=== PATIENT | female | born 1990 | race Caucasian/White ===

== ENCOUNTER 2021-03-13 17:29 | Outpatient (CLI) | payer OTHER, SELFPAY ==
[2021-03-13 17:55] LABS: Basophils Percent Auto 0.3 % (0.2-1.2); Eosinophils Absolute Auto 0.1 K/mm3 (0-0.3); Eosinophils Percent Auto 0.7 % (0-4.4); Hematocrit 34.9 % (37.0-47.0); Hemoglobin 11.6 g/dL (12.0-15.0); Immature Granulocyte Absolute 0.11 K/mm3 (0.00-0.031); Immature Granulocyte Percent A 1.2 % (0-0.5); Lymphocytes Absolute Auto 1.71 K/mm3 (0.9-3.2); Lymphocytes Percent Auto 18.1 % (18.3-44.2); Mean Corpuscular HGB Conc 33.2 g/dl (32-36); Mean Corpuscular Hemoglobin 28.9 pg (26-34); Mean Platelet Volume 9.3 fl (7.4-10.4); Monocytes Absolute Auto 0.8 K/mm3 (0.1-0.6); Monocytes Percent Auto 8.9 % (2.6-8.5); Neutrophils Absolute Auto 6.7 K/mm3 (1.3-6.7); Neutrophils Percent Auto 70.8 % (45.5-73.1); Platelet Count Result 260 k/mm3 (150-375); Red Blood Count 4.01 M/mm3 (4.2-5.4); Red Cell Distribution Width 18.9 % (11.5-14.5); White Blood Count 9.5 K/mm3 (4.5-10.0)
[2021-03-13 18:00] VITALS: BP 135/84; PULSE 90
[2021-03-13 18:07] LABS: Alanine Aminotransferase 14 U/L (4-35); Albumin Level 3.5 g/dL (3.5-5.1); Alkaline Phosphatase 148 U/L (38-126); Anion Gap 6 mmol/L (8-16); Aspartate Amino Transferase 21 U/L (14-36); Bilirubin,Total 0.2 mg/dL (0.2-1.3); Blood Urea Nitrogen 7 mg/dL (7-17); Calcium 9.6 mg/dL (8.4-10.2); Carbon Dioxide 23 mmol/L (22-30); Chloride 105 mmol/L (98-107); Estimated Glomerular Filt Rate > 60; Glucose 105 mg/dL (65-110); Potassium 3.6 mmol/L (3.4-5.0); Sodium 134 mmol/L (137-145); Uric Acid 4.5 mg/dL (2.5-7.5)
[2021-03-13 18:15] VITALS: BP 130/84; PULSE 92
[2021-03-13 18:44] LABS: Add Urine Microscopic? YES; Appearance Urine Cloudy (Clear); Bacteria Urine 4+ /hpf; Bilirubin Urine Negative (Negative); Blood Urine 1+ (Negative); Budding Yeast Urine Present /hpf; Color Urine Yellow (Yellow); Glucose Urine UA Negative (Negative); Ketones Urine Negative (Negative); Leukocyte Esterase Ur 3+ LEU/UL (NEGATIVE); Mucus Urine Rare /lpf; Nitrate Urine Negative (Negative); Protein Urine Negative (Negative); Specific Grav Ur 1.006 (1.001-1.035); Squamous Epithelial Cell Urine Many /hpf (Few); Urobilinogen Urine Negative mg/dL (<2.0); WBC Urine 31-50 /hpf (0-3)
[2021-03-13 19:01] LABS: Creatinine Urine 44.5 mg/dL; Total Protein Urine Random 20 mg/dL; Ur Ttl Prot Creatinine Ratio 0.45 mg/mg (0-0.20)
== END 2021-03-13 18:30 | disposition home or self-care (01) ==
LOC: ANHOBOP 17:34 → ANHLDR 17:34
PROVIDERS: Advanced Practice Midwife; Visit Provider Obstetrics & Gynecology
DX: O13.9 Gestational [pregnancy-induced] hypertension without significant proteinuria, unspecified trimester (principal); Z3A.00 Weeks of gestation of pregnancy not specified
CPT/HCPCS: 36415; 59025; 80053; 81001; 82570; 84156; 84550; 85025; 87086; 99199

== ENCOUNTER 2021-03-15 18:43 | Outpatient (NON) | payer OTHER, SELFPAY ==
[2021-03-15 18:54] VITALS: BMI 33.2
[2021-03-15 19:13] LABS: Collection Time Urine 24 HOURS
[2021-03-15 19:14] LABS: Patient Weight 187 Lbs; Total Volume 24 Hour Urine 2500 ml
[2021-03-15 19:25] LABS: Estimated CRCL calculation 143 ml/min; Estimated Glomerular Filt Rate > 60
[2021-03-15 19:26] LABS: Creatinine Clearance Urine 173.2 ml/min (75-125); Total Protein Urine 24 Hr 225 mg/24hr (28-141); Total Protein Urine Random 9 mg/dL
[2021-03-15 19:31] LABS: Specific Gravity Ur 1.015
== END 2021-03-15 18:44 | disposition home or self-care (01) ==
LOC: ANHOBOP 18:47
PROVIDERS: Visit Provider Obstetrics & Gynecology
DX: O13.9 Gestational [pregnancy-induced] hypertension without significant proteinuria, unspecified trimester (principal); Z3A.00 Weeks of gestation of pregnancy not specified
CPT/HCPCS: 36415; 81050; 82565; 82575; 84156

== ENCOUNTER 2021-03-17 16:02 | Inpatient (IN) | payer OTHER, SELFPAY ==
[2021-03-17] VITALS (14 sets, daily range): BP systolic 132–145; BP diastolic 75–99; PULSE 93–116; TEMP 36.5–36.7; BMI 33.2
--- OUTSIDE RECORDS SUMMARY | 2021-03-17 16:09 | XMS_ITS ---
:1990 Author Care Team Providers Name Role Phone Amanda Marshall Con Primary Care Provider Unavailable Allergies Code Code System Name Reaction Severity Status Onset Cat Dander ? ? Active ? [id number] RxNorm Latex ? ? Active ? NKDA ? Medications Name Status Start Date Stop Date ? ? 24 Hour Allergy Relief Active ? Not avail able amoxicillin 500 mg tablet Completed ? 2020 TAKE 1 TABLET BY MOUTH THREE TIMES DAILY FOR 7 DAYS cephalexin 500 mg capsule Completed ? 2020 TAKE 1 CAPSULE BY MOUTH THREE TIMES DAILY FOR 7 DAYS ID NOW COVID-19 Test Kit Active ? Not rosalio ilable DIRECTED ondansetron 8 mg disintegrating tablet Completed ? 11/22/2020 DISSOLVE 1 TABLET ON THE TONGUE TWICE DAILY Active ? Not available Problems Name Status Onset Date Source ? Active 09/27/2020 ? Procedures Date Name Performed by ? 09/27/2020 US, Obstetric, Nuchal Translucency Curtis watson [address] [place] [address] ([address]) 11/22/2020 US, Obstetric, 2Nd or 3Rd Trimester Marianne grey [address] [place] [address] (Work Place)
--- OUTSIDE RECORDS SUMMARY | 2021-03-17 16:09 | XMS_ITS | Encounter Summary ---
:1990 Author Reason for Visit OB problem; blood pressure OB problem [id number] EDC 04/06/2021 LMP patient is here for follow up on blood pressure. Assessment and Plan 1. Routine care Discussion Note: None recorded.Patient educational handouts: No information available. Plan of Care Reminders Provider Appointments Blood Amanda bear, Pressure Check 03/27/2021 CNM 5:15PM Lab None ? ? recorded. Referral None ? ? recorded. Procedures None ? ? recorded. Surgeries None ? ? recorded. Imaging None ? ? recorded. Medications Name Start Date ? ? 24 Hour Allergy Relief ? ID NOW COVID-19 Test Kit ? DIRECTED ? Medications Administered None recorded. Vitals Height Weight BMI Blood Pressure 5 ft 6 in 187 lbs 30.2 kg/m2 (1) 146/87 mm[H g] (2) 150/100 mm[H g] Results Lab Results None recorded. Allergies Code Code System Name Reaction Severity Onset Cat Dander ? ? ? [id number] RxNorm Latex ? ? ? NKDA ? ? ? Problems Name Status Onset Date Source ?
--- OUTSIDE RECORDS SUMMARY | 2021-03-17 16:09 | XMS_ITS | Encounter Summary ---
:1990 Author Reason for Visit OB visit OB [id number] EDC 04/06/2021 LMP 06/30/20 Assessment and Plan Assessment Note Patient is __28_weeks . Dis cussed plan. 1. Routine care Discussion Note: None recorded.Patient [...] BMI Blood Pressure 5 ft 6 in 170 lbs 27.4 kg/m2 135/86 mm[Hg] Results Lab Results None recorded. Allergies Code Code System Name Reaction Severity Onset Cat Dander ? ? ? [id number] RxNorm Latex ? ? ? NKDA ? ? ? Problems Name Status Onset Date Source ?
--- OUTSIDE RECORDS SUMMARY | 2021-03-17 16:09 | XMS_ITS | Encounter Summary ---
:1990 Author Reason for Visit OB visit Assessment and Plan Assessment Note Patient is ___weeks . Discu ssed plan. 1. Routine care Discussion Note: None [...] BMI Blood Pressure 5 ft 6 in 163 lbs 26.3 kg/m2 126/84 mm[Hg] Results Lab Results None recorded. Allergies Code Code System Name Reaction Severity Onset Cat Dander ? ? ? [id number] RxNorm Latex ? ? ? NKDA ? ? ? Problems Name Status Onset Date Source ?
--- OUTSIDE RECORDS SUMMARY | 2021-03-17 16:09 | XMS_ITS | Encounter Summary ---
:1990 Author Reason for Visit OB visit OB [id number] EDC 04/06/2021 LMP 06/30/2020 Assessment and Plan Assessment Note Patient is _34__weeks . Dis cussed plan. 1. Routine care [...] BMI Blood Pressure 5 ft 6 in 183 lbs 29.5 kg/m2 138/84 mm[Hg] Results Lab Results None recorded. Allergies Code Code System Name Reaction Severity Onset Cat Dander ? ? ? [id number] RxNorm Latex ? ? ? NKDA ? ? ? Problems Name Status Onset Date Source ?
--- OUTSIDE RECORDS SUMMARY | 2021-03-17 16:09 | XMS_ITS | Encounter Summary ---
:1990 Author Reason for Visit OB visit OB [id number] EDC 04/06/2021 LMP 06/30/2020 Assessment and Plan Assessment Note Patient is _30__weeks . Dis cussed plan. 1. Routine care [...] BMI Blood Pressure 5 ft 6 in 173 lbs 27.9 kg/m2 144/76 mm[Hg] Results Lab Results None recorded. Allergies Code Code System Name Reaction Severity Onset Cat Dander ? ? ? [id number] RxNorm Latex ? ? ? NKDA ? ? ? Problems Name Status Onset Date Source ?
--- OUTSIDE RECORDS SUMMARY | 2021-03-17 16:09 | XMS_ITS | Encounter Summary ---
:1990 Author Reason for Visit None recorded. Assessment and Plan 1. Uterine size for dates discre pancy ? US, obstetric, follow-up Discussion Note: None recorded.Patient educational handouts: No information available. Plan of Care Reminders Provider Appointments Blood Amanda bear, Pressure Check 03/27/2021 CNM 5:15PM Lab None ? ? recorded. Referral None ? ? recorded. Procedures None ? ? recorded. Surgeries None ? ? recorded. Imaging , [place] Obstetric, Follow-up 03/01/2021 Medications Name Start Date ? ? 24 Hour Allergy Relief ? ID NOW COVID-19 Test Kit ? DIRECTED ? Medications Administered None recorded. Vitals None recorded. Results Lab Results None recorded. Allergies Code Code System Name Reaction Severity Onset Cat Dander ? ? ? [id number] RxNorm Latex ? ? ? NKDA ? ? ? Problems Name Status Onset Date Source ? Active 09/27/2020 ? Procedures Date Name Performed by
--- OUTSIDE RECORDS SUMMARY | 2021-03-17 16:09 | XMS_ITS | Encounter Summary ---
:1990 Author Reason for Visit OB visit OB [id number] EDC 04/06/2021 LMP 06/30/2020 Assessment and Plan Assessment Note Patient is 32___weeks . Dis cussed plan. 1. Routine care [...] BMI Blood Pressure 5 ft 6 in 178 lbs 28.7 kg/m2 137/86 mm[Hg] Results Lab Results None recorded. Allergies Code Code System Name Reaction Severity Onset Cat Dander ? ? ? [id number] RxNorm Latex ? ? ? NKDA ? ? ? Problems Name Status Onset Date Source ?
--- OUTSIDE RECORDS SUMMARY | 2021-03-17 16:09 | XMS_ITS | Encounter Summary ---
:1990 Author Reason for Visit OB visit OB [id number] EDC 04/06/2021 LMP 06/30/2020 Assessment and Plan Assessment Note Patient is _36__weeks . Dis cussed plan. 1. Routine care [...] 6 in 187 lbs 30.2 kg/m2 (1) 149/94 mm[H g] (2) 155/100 mm[H g] Results Lab Results None recorded. Allergies Code Code System Name Reaction Severity Onset Cat Dander ? ? ? [id number] RxNorm Latex ? ? ? NKDA ? ? ?
[2021-03-17] MEDS: DINOPROSTONE 10 MG VAG INSERT VAGINAL (16:39)
[2021-03-17 16:46] LABS: Basophils Percent Auto 0.3 % (0.2-1.2); Eosinophils Absolute Auto 0.1 K/mm3 (0-0.3); Eosinophils Percent Auto 0.5 % (0-4.4); Hematocrit 34.9 % (37.0-47.0); Hemoglobin 11.5 g/dL (12.0-15.0); Immature Granulocyte Absolute 0.12 K/mm3 (0.00-0.031); Immature Granulocyte Percent A 1.3 % (0-0.5); Lymphocytes Absolute Auto 1.53 K/mm3 (0.9-3.2); Lymphocytes Percent Auto 16.5 % (18.3-44.2); Mean Corpuscular Hemoglobin 29.1 pg (26-34); Mean Corpuscular Volume 88.4 fl (80-100); Mean Platelet Volume 9.7 fl (7.4-10.4); Monocytes Absolute Auto 0.8 K/mm3 (0.1-0.6); Monocytes Percent Auto 8.3 % (2.6-8.5); Neutrophils Absolute Auto 6.8 K/mm3 (1.3-6.7); Neutrophils Percent Auto 73.1 % (45.5-73.1); Platelet Count Result 247 k/mm3 (150-375); Red Blood Count 3.95 M/mm3 (4.2-5.4); Red Cell Distribution Width 18.5 % (11.5-14.5); White Blood Count 9.3 K/mm3 (4.5-10.0)
[2021-03-17 16:56] LABS: Alanine Aminotransferase 15 U/L (4-35); Albumin Level 3.6 g/dL (3.5-5.1); Alkaline Phosphatase 148 U/L (38-126); Anion Gap 5 mmol/L (8-16); Aspartate Amino Transferase 23 U/L (14-36); Bilirubin,Total 0.2 mg/dL (0.2-1.3); Blood Urea Nitrogen 7 mg/dL (7-17); Calcium 9.2 mg/dL (8.4-10.2); Carbon Dioxide 23 mmol/L (22-30); Chloride 104 mmol/L (98-107); Estimated Glomerular Filt Rate > 60; Glucose 97 mg/dL (65-110); Potassium 3.7 mmol/L (3.4-5.0); Sodium 132 mmol/L (137-145); Uric Acid 4.8 mg/dL (2.5-7.5)
[2021-03-17] MEDS: LACTATED RINGERS 1,000 ML 125 ML IV CONT (21:39)
[2021-03-17] MEDS: fentaNYL CITRATE INJ (*CRX) 100 MCG/2 ML VIAL 50 MCG IV PUSH (22:00)
[2021-03-18] VITALS (117 sets, daily range): BP systolic 113–150; BP diastolic 66–100; PULSE 40–154; RESP 16–20; TEMP 36.3–38.2; O2SAT 82–100
--- NOTE | 2021-03-18 03:17 | LDADM ---
This patient, Cassandra Koenig, was admitted to Labor/Delivery/Recovery 108 on 03/17/21 at 16:02. Plans for labor, pain management and were discussed with patient. Patient/family oriented to hospital policies and general routines including ID bracelet, bed and alarms, visiting hours, pain management, procedures, bathroom and other care routines, personal items, smoking policy, room service/diet and guest tray routines, infant security routines, and visiting hours. Patient/Family are encouraged to report perceived risks to care and to ask questions if they do not understand what they are told or what they should do. See OBIX for further documentation.
[2021-03-18] MEDS: OXYTOCIN 30 UNITS/NS 500 ML 30 UNITS/500 ML BAG 6 UNITS IV CONT (05:47)
[2021-03-18] MEDS: fentaNYL CITRATE INJ (*CRX) 100 MCG/2 ML VIAL IV PUSH ×3 (05:47→09:41)
[2021-03-18 06:11] LABS: Rapid Plasma Reagin Non-Reactive (NonReactive)
--- NOTE | 2021-03-18 07:45 | WPDANESEPP ---
Anes - Eval Pre Procedure Procedure: labor epidural Date/Time: 03/18/21 07:45 Surgeon: sera Preop Diagnosis: pain during labor Pre Op Diagnosis: IOL Patient Data Age: 30 Gender: F Height: 1.6 m Weight: 85 kg Last Vital Signs Temp 36.3 C L 03/18/21 05:55 Pulse 92 03/18/21 07:30 Resp 18 03/18/21 05:55 BP 138/83 03/18/21 07:30 Allergies Allergy/AdvReac Type Severity Reaction Status Date / Time latex Allergy Rash Verified 03/08/21 12:30 Home Medications Medication Instructions Recorded Confirmed Type ferrous sulfate 140 mg PO BID 03/08/21 03/17/21 History prenat.vits,alexandrea,sol-ypva-aosfv 1 tablet PO DAILY 03/08/21 03/17/21 History [ #2] Laboratory Tests 03/17/21 03/17/21 03/17/21 16:32 16:33 16:33 WBC 9.3 K/mm3 K/mm3 (4.5-10.0) RBC 3.95 M/mm3 L M/mm3 (4.2-5.4) Hgb 11.5 g/dL L g/dL (12.0-15.0) Hct 34.9 % L % (37.0-47.0) MCV 88.4 fl fl (80-100) MCH 29.1 pg pg (26-34) MCHC 33.0 g/dl g/dl (32-36) RDW 18.5 % H % (11.5-14.5) Plt Count 247 k/mm3 k/mm3 (150-375) MPV 9.7 fl fl (7.4-10.4) Immature Gran % (Auto) 1.3 % H % (0-0.5) Neut % (Auto) 73.1 % % (45.5-73.1) Lymph % (Auto) 16.5 % L % (18.3-44.2) [place] % (Auto) 8.3 % % (2.6-8.5) Eos % (Auto) 0.5 % % (0-4.4) Baso % (Auto) 0.3 % % (0.2-1.2) Lymph # (Auto) 1.53 K/mm3 K/mm3 (0.9-3.2) [place] # (Auto) 0.8 K/mm3 H K/mm3 (0.1-0.6) Eos # (Auto) 0.1 K/mm3 K/mm3 (0-0.3) Baso # (Auto) 0.0 K/mm3 K/mm3 (0.0-0.1) Abs Immat Gran (auto) 0.12 K/mm3 H K/mm3 (0.00-0.031) Absolute Neuts (auto) 6.8 K/mm3 H K/mm3 (1.3-6.7) Absolute Nucleated RBC 0.0 K/mm3 K/mm3 (0.0-0.012) Nucleated RBC % 0.0 % % (0.0-0.2) Sodium Potassium Chloride Carbon Dioxide Anion Gap BUN Creatinine Estim Creat Clear Calc Estimated GFR Glucose Uric Acid Cancelled Calcium Total Bilirubin AST ALT Alkaline Phosphatase Total Protein Albumin RPR Non-reactive (NonReactive) Blood Type Antibody Screen 03/17/21 03/17/21 16:33 16:33 WBC RBC Hgb Hct MCV MCH MCHC RDW Plt Count MPV Immature Gran % (Auto) Neut % (Auto) Lymph % (Auto) [place] % (Auto) Eos % (Auto) Baso % (Auto) Lymph # (Auto) [place] # (Auto) Eos # (Auto) Baso # (Auto) Abs Immat Gran (auto) Absolute Neuts (auto) Absolute Nucleated RBC Nucleated RBC % Sodium 132 mmol/L L mmol/L (137-145) Potassium 3.7 mmol/L mmol/L (3.4-5.0) Chloride 104 mmol/L mmol/L (98-107) Carbon Dioxide 23 mmol/L mmol/L (22-30) Anion Gap 5 mmol/L L mmol/L (8-16) BUN 7 mg/dL mg/dL (7-17) Creatinine 0.50 mg/dL L mg/dL (0.7-1.0) Estim Creat Clear Calc Not Reportable Estimated GFR > 60 (59 - ) Glucose 97 mg/dL mg/dL (65-110) Uric Acid 4.8 mg/dL mg/dL (2.5-7.5) Calcium 9.2 mg/dL mg/dL (8.4-10.2) Total Bilirubin 0.2 mg/dL mg/dL (0.2-1.3) AST 23 U/L U/L (14-36) ALT 15 U/L U/L (4-35) Alkaline Phosphatase 148 U/L H U/L (38-126) Total Protein 6.0 g/dL L g/dL (6.3-8.2) Albumin 3.6 g/dL g/dL (3.5-5.1) RPR Blood Type O Positive Antibody Screen Negative Patient hx anesthesia problems: none Family hx anesthesia problems: none
--- NOTE | 2021-03-18 09:08 | WPDOBADMIT ---
Obstetrics - Admit Note Admission Note: record reviewed. No pertinent additions to the history and/or any subsequent changes in the physical findings that are not consistent with the expected course of the were found. MIL at 37 week for GHTN, denies jc, visual changes, epigastric pain, SVE 1-2/70/-2 forebag ruptured with minimal clear odorless fluid Additions to the history and/or subsequent changes in the physical findings follow. None.
[2021-03-18] MEDS: LACTATED RINGERS 1,000 ML 125 ML IV CONT (09:41)
--- NOTE | 2021-03-18 15:11 | PM.OBPRVD ---
OB - Delivery Note Procedure Delivery date: 03/18/21 Procedure: vaginla delivery events: Induced HTN Intrapartal events: None Induction method: AROM, per pitocin protocol and per cervidil protocol Delivery monitor: external FHT and external uterine Route of delivery: Episiotomy description: None Laceration Description: Perineal - 2nd Degree (rectal exam wnl) Delivery repair: vicryl Specimen: Yes Quantitative Blood Loss (ml): 180 Anesthesia type: Epidural Disposition: floor Baby Date of : 03/18/21 Time of : 14:51 Weeks of gestation at delivery: 37 Infant gender: Female Weight (pounds): 8 Weight (ounces): 8 presentation: vertex position: Left Occiput Anterior Placenta delivery description: Spontaneous cord vessel description: 3 Vessels, Nuchal Cord (x2), Loose, Reduced, Clamped/Cut and Delayed Cord Clamping score one minute: 7 score five minutes: 7 Narrative: mother and baby skin to skin in stable condition
[2021-03-18] MEDS: OXYTOCIN 30 UNITS/NS 500 ML 30 UNITS/500 ML BAG 125 UNITS IV CONT (15:25)
[2021-03-18] MEDS: IBUPROFEN 600 MG TABLET PO (16:02)
[2021-03-18] MEDS: BENZOCAINE 20% AER SPR (*SP) 56 GM CAN 1 SPRAY TOPICAL (18:50)
[2021-03-18] MEDS: WITCH HAZEL 40 PADS 1 PAD TOPICAL (18:50)
--- NOTE | 2021-03-18 18:59 | OBPPTRN ---
Patient transferred to post room #278 via wheelchair. Support person present. Oriented to unit, room, information board, rooming in, admission packet and security measures. Patient verbalizes understanding.
[2021-03-19] MEDS: IBUPROFEN 600 MG TABLET PO ×4 (00:08→20:49)
[2021-03-19 03:00] VITALS: BP 135/83; PULSE 99; RESP 16; TEMP 36.9; O2SAT 98
[2021-03-19 05:20] LABS: Hematocrit 32.8 % (37.0-47.0); Hemoglobin 10.6 g/dL (12.0-15.0)
[2021-03-19 07:20] VITALS: BP 143/83; PULSE 100; RESP 16; TEMP 36.4; O2SAT 98
[2021-03-19] MEDS: MULTIVIT/MIN/PREN/FOL AC/IRON TABLET 1 TAB PO (07:34)
[2021-03-19] MEDS: DOCUSATE SODIUM 100 MG CAPSULE PO ×2 (07:34→17:19)
--- NOTE | 2021-03-19 07:51 | PM.OBPNVD ---
OB - PN: Subj Subjective Date/time seen: 03/19/21 07:51 Patient comments: no complaints baby status: doing well OB - PN: Obj Data Labs CBC & Chem 7: 03/19/21 03:45 03/17/21 16:33 Labs: Laboratory Results - last 24 hr 03/19/21 03:45 Hgb 10.6 L Hct 32.8 L OB - PN A/P Plan day: 1 Plan: routine care Time Spent With Patient Time: Total time spent is greater than 50% in coordination of care (as documented) at patient's floor/unit and/or counseling patient: Time with patient: less than 15 minutes Review of Systems Review of Systems: All systems reviewed & are unremarkable except as noted in HPI and below Exam Narrative: Fundus firm and vaginal flow controlled. No lower ext redness, warmth, or edema. Negative homans. Denies h/a, v/d or e/p. Reflexes normal. Const: General: comfortable Chest: Breast/axilla inspection: normal inspection of the breasts Resp: Effort & Inspection: normal respiratory effort Cardio: Rate: regular rate GI: GI Palp: Yes Soft to palpation Psych: Appearance: grossly normal Affect: normal affect Attitude: cooperative Thought content: Yes Normal thought content present Judgement: Good judgement present (Psych)
--- NOTE | 2021-03-19 09:30 | PC.NURSE ---
Mother called out for assist with feeding, reporting is sleepy at times. Mother has a Latch Assist at bedside to assist with drawing out nipple. Demonstrated how to roll out nipple before latch, advising mother to use what she is most comfortable with. is able to freely thrust tongue to gum ridge small amount of frenulum noted, both lips easily flange. Skin is intact on both nipples, no redness and bruising noted. Discussed establishing in the late may be more difficult due to their immaturity, infant may be less alert, have less stamina, and have greater difficulty with latch, suck, and swallow. Infant?s feeding may impact mother?s milk supply, pumping may need to be initiated until milk supply is well established if is unable to maintain effective breastfeed. Reviewed feeding cues, frequencies, duration of feedings, feeding elimination flow sheet, and signs of adequate intake. Demonstrated stimulation techniques to wake for feeding. Assisted with to breast. Reviewed positioning/alignment in cross cradle, holding breast in ?U? hold and guided asymmetrical latch on. Reviewed rational for each. able to latch correctly within a few attempts. nursed eagerly with steady draws and occasional swallowing noted, some pausing noted. Reviewed signs of a correct latch, effective nursing and suck swallow ratio. Suggested mother stimulate while feeding to increase stimulation for milk supply, for increased intake and to assist with maintaining deep latch. needed constant stimulation to keep awake and nursing effectively. Infant would slip to shallow latch causing tenderness. Demonstrated how to adjust latch more deeply while feeding as needed. Mother reports she can feel the difference in latch with less tenderness. Nipple care reviewed of lanolin after feedings, warm compresses as needed. Instructed mother to call out for RN assistance if she is unable to latch for feeding or she has discomfort with nursing. Instructed feeding should be initiated three hours from start of last feeding or if feeding cues are noted before. Mother voiced understanding of information shared.
--- NOTE | 2021-03-19 11:12 | WPDANLDPN2 ---
Anes-Prog Note L&D Date/Time: 03/19/21 11:12 Comfortable throughout: labor and delivery Neuraxial method: epidural Epidural/Spinal procedure site: clean & non-tender Neuro status: Neuro function grossly intact. Cardiovascular status: normal Respiratory status: normal Airway patency: baseline Mental status: baseline Post-Op hydration status: normal Vital Signs: Last Vital Signs Temp 36.4 C 03/19/21 07:20 Pulse 100 03/19/21 07:20 Resp 16 03/19/21 07:20 BP 143/83 H 03/19/21 07:20 Pulse Ox 98 03/19/21 07:20 Pain score (VAS): 0 I/O: Intake & Output 03/18/21 03/19/21 03/19/21 23:59 07:59 15:59 Intake Total 500 300 250 Output Total 1005 400 500 Balance -505 -100 -250 Post-procedural complaints: none Patient feedback: Patient satisfied with anesthetic care.
[2021-03-19 11:50] VITALS: BP 137/84; PULSE 117; RESP 16; TEMP 36.9; O2SAT 97
[2021-03-19] MEDS: POLYSACCHARIDE IRON COMPLEX 150 MG CAPSULE PO (17:19)
[2021-03-19 19:00] VITALS: BP 140/78; PULSE 103; RESP 16; TEMP 35.9; O2SAT 99
[2021-03-19 23:15] VITALS: BP 140/90; PULSE 99
[2021-03-20] VITALS (7 sets, daily range): BP systolic 127–154; BP diastolic 82–93; PULSE 91–108; RESP 12–18; TEMP 36.4–37.1; O2SAT 97–98
[2021-03-20] MEDS: ACETAMINOPHEN 325 MG TABLET 650 MG PO ×2 (01:25→14:25)
--- NOTE | 2021-03-20 07:22 | PM.OBPNVD ---
OB - PN: Subj Subjective Date/time seen: 03/20/21 07:22 Patient comments: no complaints baby status: doing well [place] feeding status: breast and bottle feeding OB - PN: Obj Data Labs CBC & Chem 7: 03/19/21 03:45 03/17/21 16:33 OB - PN A/P Plan day: 2 Plan: routine care Time Spent With Patient Time: Total time spent is greater than 50% in coordination of care (as documented) at patient's floor/unit and/or counseling patient: Review of Systems Review of Systems: All systems reviewed & are unremarkable except as noted in HPI and below Exam Const: General: cooperative, healthy appearing, comfortable and no acute distress
[2021-03-20] MEDS: LABETALOL HCL 100 MG TABLET PO ×2 (08:55→20:22)
[2021-03-20] MEDS: MULTIVIT/MIN/PREN/FOL AC/IRON TABLET 1 TAB PO (08:55)
--- NOTE | 2021-03-20 10:10 | PC.NURSE ---
Mother called out for assist with feeding, reporting was sleepy and was put under bili lights during the night. is now supplemented after each . Reviewed establishing in the late may be more difficult due to their immaturity, may be less alert, have less stamina, and have greater difficulty with latch, suck, and swallow. ?s feeding may impact mother?s milk supply, pumping may need to be initiated until milk supply is well established and is able to effectively breastfeed without supplementation. Suggested to initiate pumping after this feeding. Reviewed feeding cues, frequencies, duration of feedings, feeding elimination flow sheet, and signs of adequate intake. Demonstrated stimulation techniques to wake for feeding. Assisted with to breast. Reviewed positioning/alignment in cross cradle, holding breast in ?U? hold and guided asymmetrical latch on. Reviewed rational for each. Infant able to latch correctly within a few attempts. Infant nursed eagerly with steady draws and occasional swallowing noted, some pausing noted. Reviewed signs of a correct latch, effective nursing and suck swallow ratio. Suggested mother stimulate while feeding to increase stimulation for milk supply, for increased intake and to assist with maintaining deep latch. Infant is more awake and eagerly feeding with minimal stimulation this feeding. would slip to shallow latch causing tenderness. Demonstrated how to adjust latch more deeply while feeding as needed. Mother reports she can feel the difference in latch with no tenderness. Nipple care reviewed of lanolin after feedings, warm compresses as needed. Discussed the difference of effective vs ineffective feeding. Reviewed infant is latching with good burst of suckling, she is feeding consistently with adequate milk transfer at this time and continues to need supplement after due to the jaundice. . Feeding options discussed, Feeding Plan is for mother to put to breast each feeding for up to 15 minutes, then pace feed supplement 20-30 mls and pump for 10-15 minutes. Parents are comfortable with supplementation and pumping. Discussed increasing supplementation as infant requires to satisfactions. Reviewed paced feeding and suggested to stop when is satisfied, as long as infant is having required output. With increased supplementation infant may not want to feed for 4 hours. Mother will continue to pump on infant feeding schedule and will increase session to 20 minutes if pumping every 4 hours. Instructed mother to call out for RN assistance if she is unable to latch for feeding or she has discomfort with nursing.
--- NOTE | 2021-03-20 11:00 | PC.NURSE ---
Breast pump provided due to supplemented due to jaundice. Instructions given on breast pump care and usage, pumping schedule, nipple care, and collection and storage of breast milk. Encouraged [id number], breast massage and manual expression to stimulate supply. Assessed patient for correct flange size, placement and draw. Patient verbalizes and demonstrates understanding of instructions. Discussed colostrum vs milk supply and mother may not see more than a few drops the first few days, milk should transition in by day 3 and she may see more volume pumped per session.
[2021-03-20] MEDS: DOCUSATE SODIUM 100 MG CAPSULE PO (14:26)
[2021-03-20] MEDS: IBUPROFEN 600 MG TABLET PO (20:23)
[2021-03-21 00:30] VITALS: BP 136/77; PULSE 72
[2021-03-21 04:15] VITALS: BP 138/84; PULSE 73
[2021-03-21 05:16] LABS: Hemoglobin 9.3 g/dL (12.0-15.0); Mean Corpuscular HGB Conc 33.2 g/dl (32-36); Mean Corpuscular Hemoglobin 29.2 pg (26-34); Mean Corpuscular Volume 88.1 fl (80-100); Mean Platelet Volume 9.8 fl (7.4-10.4); Platelet Count Result 275 k/mm3 (150-375); Red Blood Count 3.18 M/mm3 (4.2-5.4); Red Cell Distribution Width 18.4 % (11.5-14.5)
[2021-03-21 05:34] LABS: Alanine Aminotransferase 18 U/L (4-35); Albumin Level 3.1 g/dL (3.5-5.1); Alkaline Phosphatase 120 U/L (38-126); Anion Gap 5 mmol/L (8-16); Aspartate Amino Transferase 34 U/L (14-36); Bilirubin,Total 0.3 mg/dL (0.2-1.3); Blood Urea Nitrogen 7 mg/dL (7-17); Calcium 8.8 mg/dL (8.4-10.2); Carbon Dioxide 26 mmol/L (22-30); Chloride 105 mmol/L (98-107); Estimated CRCL calculation 139 ml/min; Estimated Glomerular Filt Rate > 60; Glucose 93 mg/dL (65-110); Potassium 3.6 mmol/L (3.4-5.0); Sodium 136 mmol/L (137-145); Uric Acid 5.1 mg/dL (2.5-7.5)
[2021-03-21 08:15] VITALS: BP 129/77; PULSE 84; RESP 20; TEMP 36.8; O2SAT 99
[2021-03-21 08:16] VITALS: PULSE 84
[2021-03-21] MEDS: POLYSACCHARIDE IRON COMPLEX 150 MG CAPSULE PO (08:16)
[2021-03-21] MEDS: LABETALOL HCL 100 MG TABLET PO (08:16)
[2021-03-21] MEDS: MULTIVIT/MIN/PREN/FOL AC/IRON TABLET 1 TAB PO (08:16)
--- NOTE | 2021-03-21 08:27 | PM.OBPNVD ---
OB - PN: Subj Subjective Date/time seen: 03/21/21 08:27 Patient comments: no complaints baby status: doing well [place] feeding status: breast and bottle feeding OB - PN: Obj Data Labs CBC & Chem 7: 03/21/21 04:19 03/21/21 04:19 Labs: Laboratory Results - last 24 hr 03/21/21 03/21/21 04:19 04:19 WBC 12.0 H RBC 3.18 L Hgb 9.3 L Hct 28.0 L MCV 88.1 MCH 29.2 MCHC 33.2 RDW 18.4 H Plt Count 275 MPV 9.8 Sodium 136 L Potassium 3.6 Chloride 105 Carbon Dioxide 26 Anion Gap 5 L BUN 7 Creatinine 0.50 L Estim Creat Clear Calc 139 Estimated GFR > 60 Glucose 93 Uric Acid 5.1 Calcium 8.8 Total Bilirubin 0.3 AST 34 ALT 18 Alkaline Phosphatase 120 Total Protein 6.0 L Albumin 3.1 L OB - PN A/P Plan day: 3 Plan: routine care and discharge home Time Spent With Patient Time: Total time spent is greater than 50% in coordination of care (as documented) at patient's floor/unit and/or counseling patient: Review of Systems Review of Systems: All systems reviewed & are unremarkable except as noted in HPI and below Exam Const: General: cooperative, healthy appearing, comfortable and no acute distress
--- NOTE | 2021-03-21 08:31 | P.DS_ITS ---
DS: Admitting Diagnosis Discharge Date 03/21/21 Admitting Diagnosis IOL, GHTN OB - DS: Summary OB Procedures : None OB Procedures Intrapartum: Spontaneous Vag Delivery OB Procedures: : None Time Spent with Patient Time attestation: Total time spent providing and/or coordinating discharge services: DS: Data Data Completed and Pending Pending studies at discharge: Pending at discharge 03/18/21 14:57 Surgical [PTH] Routine Labs on day of discharge: Labs from last 24 hours 03/21/21 03/21/21 04:19 04:19 WBC 12.0 H RBC 3.18 L Hgb 9.3 L Hct 28.0 L MCV 88.1 MCH 29.2 MCHC 33.2 RDW 18.4 H Plt Count 275 MPV 9.8 Sodium 136 L Potassium 3.6 Chloride 105 Carbon Dioxide 26 Anion Gap 5 L BUN 7 Creatinine 0.50 L Estim Creat Clear Calc 139 Estimated GFR > 60 Glucose 93 Uric Acid 5.1 Calcium 8.8 Total Bilirubin 0.3 AST 34 ALT 18 Alkaline Phosphatase 120 Total Protein 6.0 L Albumin 3.1 L Discharge Plan Discharge Attending physician on discharge: Felecia Canada Discharging Clinician: Amanda Marshall Patient Disposition: Home, Self-Care Activity: pelvic rest Diet: regular Patient Instructions: Antibiotic Form Stand Alone Forms: General Discharge Information Follow-up/Referrals: Amanda Marshall CNM [Certified Nurse Stave Bolt Equalizer] - 1 Week Discharge Medications: Continued #2 Tablet 1 tablet PO DAILY RF: 0 ferrous sulfate 140 mg (45 mg iron) Tablet Extended Release 140 mg PO BID RF: 0 Date of admission: 03/17/21 16:02 Primary Care Provider: PHYSICIAN,DIRECTOR CLOUD TRANSFORMATION Admitting Provider: Felecia Canada Attending physician on admission: Felecia Canada Condition: Stable
--- NOTE | 2021-03-21 08:31 | P.DS_ITS ---
DS: Admitting Diagnosis Discharge Date 03/21/21 Admitting Diagnosis IOL GHTN OB - DS: Summary OB Procedures : None OB Procedures Intrapartum: Spontaneous Vag Delivery OB Procedures: : None Time Spent with Patient Time attestation: Total time spent providing and/or coordinating discharge services: DS: Data Data Completed and Pending Pending studies at discharge: Pending at discharge 03/18/21 14:57 Surgical [PTH] Routine Labs on day of discharge: Labs from last 24 hours 03/21/21 03/21/21 04:19 04:19 WBC 12.0 H RBC 3.18 L Hgb 9.3 L Hct 28.0 L MCV 88.1 MCH 29.2 MCHC 33.2 RDW 18.4 H Plt Count 275 MPV 9.8 Sodium 136 L Potassium 3.6 Chloride 105 Carbon Dioxide 26 Anion Gap 5 L BUN 7 Creatinine 0.50 L Estim Creat Clear Calc 139 Estimated GFR > 60 Glucose 93 Uric Acid 5.1 Calcium 8.8 Total Bilirubin 0.3 AST 34 ALT 18 Alkaline Phosphatase 120 Total Protein 6.0 L Albumin 3.1 L Discharge Plan Discharge Attending physician on discharge: Felecia Canada Discharging Clinician: Amanda Marshall Patient Disposition: Home, Self-Care Activity: pelvic rest Diet: regular Patient Instructions: Antibiotic Form Stand Alone Forms: General Discharge Information Follow-up/Referrals: Amanda Marshall CNM [Certified Nurse Cellophane Bag Machine Operator] - 1 Week Discharge Medications: Continued #2 Tablet 1 tablet PO DAILY RF: 0 ferrous sulfate 140 mg (45 mg iron) Tablet Extended Release 140 mg PO BID RF: 0 Date of admission: 03/17/21 16:02 Primary Care Provider: PHYSICIAN,LINING MARKER Admitting Provider: Felecia Canada Attending physician on admission: Felecia Canada Condition: Stable
[2021-03-21] MEDS: IBUPROFEN 600 MG TABLET PO (11:14)
[2021-03-23 11:15] VITALS: BP 147/85; PULSE 89; RESP 20; TEMP 37.1; O2SAT 99
== END 2021-03-21 11:35 | disposition home or self-care (01) | DRG 807 ==
LOC: ANHLDR 16:07 → ANHOB2 03-18 20:15
PROVIDERS: Advanced Practice Midwife; Admitting Provider Obstetrics & Gynecology; Visit Provider Obstetrics & Gynecology
DX: O13.4 Gestational [pregnancy-induced] hypertension without significant proteinuria, complicating childbirth (principal); Z37.0 Single live birth; O70.1 Second degree perineal laceration during delivery; O69.81X0 Labor and delivery complicated by cord around neck, without compression, not applicable or unspecified; Z3A.37 37 weeks gestation of pregnancy; O76 Abnormality in fetal heart rate and rhythm complicating labor and delivery
CPT/HCPCS: 36415; 80053; 81050; 82565; 82575; 84112; 84156; 84550; 85014; 85018; 85025; 85027; 86592; 86850; 86900; 86901; 88307; A9270; J2590; J2795; J3010; J7120

== ENCOUNTER 2021-06-22 12:12 | Outpatient (CLI) | payer OTHER, SELFPAY ==
[2021-06-22 12:54] LABS: Alanine Aminotransferase 97 U/L (4-35); Albumin Level 4.9 g/dL (3.5-5.1); Alkaline Phosphatase 141 U/L (38-126); Aspartate Amino Transferase 44 U/L (14-36); Bilirubin,Total 0.8 mg/dL (0.2-1.3)
[2021-06-22 15:10] LABS: Hepatitis C Virus Antibody Negative (Negative)
[2021-06-22 15:28] LABS: Hepatitis B Surface Anti Res Indeterminate
[2021-06-26 06:17] LABS: GGT 232 U/L (3-40)
== END 2021-06-22 12:13 | disposition home or self-care (01) ==
LOC: ANHLAB 12:15
PROVIDERS: PCP Nurse Practitioner Family; Visit Provider Nurse Practitioner Family
DX: R10.13 Epigastric pain (principal); R74.8 Abnormal levels of other serum enzymes
CPT/HCPCS: 36415; 80076; 82977; 86706; 86803

== ENCOUNTER 2021-06-25 03:09 | Emergency (ER) | payer OTHER, SELFPAY ==
--- NOTE | ~2021-06-25 | US_ITS ---
EXAMINATION: US abdomen limited DATE: 06/25/2021 07:33 INDICATION: Mid abdominal pain radiating to the back. Abnormal liver function tests. TECHNIQUE: Multiple grayscale and Doppler ultrasound images of the abdomen were obtained. COMPARISON: None FINDINGS: The visualized portions of the head, body, and tail of the pancreas are normal. The liver i s normal without focal lesion. No liver surface nodularity. There is normal flow in main portal vein. The gallbladder is contracted and contains gallstones. There is no sonographic Suarez sign. The comm on duct is normal and measures 4 mm. IMPRESSION: 1. Cholelithiasis. No evidence of acute cholecystitis. Reviewed, dictated and finalized at location [facility]
[2021-06-25 03:19] VITALS: BP 133/85; PULSE 88; RESP 16; TEMP 36.4; O2SAT 100
--- NOTE | 2021-06-25 03:40 | ED.ABDPAIN ---
HPI - Abdominal Pain General Chief Complaint: Abdominal Pain Stated Complaint: abdominal pain Time Seen by Provider: 06/25/21 03:15 Source: patient Mode of arrival: ambulatory Limitations: no limitations History of Present Illness HPI narrative: This is a 30 year old female who presents for evaluation of upper abdominal pain. She developed pain located right upper abdomen and epigastric 1.5 hours ago. This pain has been constant and it radiates to her back. She reports similar intermittent pain for 1 month, and she is being evaluated by her PCP. She denies associated nausea, vomiting, fever , chills, diarrhea or urinary symptoms. She took ibuprofen prior to arrival her pain . She also noticed pain is worse with eating at time. Pain rated 8/10 Related Data Allergies Allergy/AdvReac Type Severity Reaction Status Date / Time latex Allergy Rash Verified 06/25/21 03:24 Review of Systems Review of Systems: All systems reviewed & are unremarkable except as noted in HPI and below PMFSH Past Medical History Medical History Migraine Surgical History Surgical History No history of previous surgery Family History Family History Father Hypertension Grandparent Hypertension Family history of chronic obstructive pulmonary disease Family history of type 2 diabetes mellitus Mother Family history of heart disease in male family member before age 55 Father Dementia Hypertension Mother Hypertension Acute myocardial infarction Grandparent Acute myocardial infarction Cerebrovascular accident Social History Social History (Updated 06/10/21 @ 11:59 by Jaycee Eubanks NP) Social History: Patient is , one daughter born 02/2021. She lives with her family in [place]. 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 Gender identity (if verbalized by the patient): Female Sexual Orientation (if Verbalized by the Patient): Straight or Heterosexual Spiritual care concerns: No Agree to blood products: Yes Exam Const: General: alert Orientation/consciousness: patient oriented x3 Other: mild distress due to pain Eyes: EOM: EOMs intact bilaterally Resp: Effort & Inspection: normal respiratory effort and no retractions Auscultation: clear to auscultation bilaterally Cardio: Rate: regular rate Rhythm: regular rhythm Heart sounds: no murmurs GI: GI Palp: Yes Soft to palpation, No Tenderness to palpation present (GI) and No Guarding due to palpation present (GI) Auscultation: normal bowel sounds Skin: General skin exam: normal color Rashes: no rashes Neuro: General: patient oriented x3, moves all extremities and CN's II-XI intact bilaterally Psych: Mental Status: mental status grossly normal Affect: normal affect Course Reevaluation(s) Reevaluation #1: Patient states she feels much better. Pain almost completely resolved. Date: 06/25/21 Time: 05:01 Reevaluation #2: Patient is awaiting GB US to assess for stones and cholecystitis. Dr. Taylor will follow up on US and disposition. Date: 06/25/21 Time: 07:14 Vital Signs Vital signs: Vital Signs Temperature 97.5 F L 06/25/21 03:19 Pulse Rate 88 06/25/21 03:19 Respiratory Rate 16 06/25/21 03:19 Blood Pressure 133/85 06/25/21 03:19 Pulse Oximetry 100 06/25/21 03:19 Temperature 97.5 F L 06/25/21 03:19 Pulse Rate 88 06/25/21 06:15 Respiratory Rate 16 06/25/21 06:15 Blood Pressure 114/77 06/25/21 06:15 Pulse Oximetry 100 06/25/21 06:15 MDM - Abdominal Pain Lab Data Result diagrams: 06/25/21 03:3
[2021-06-25 03:44] LABS: Basophils Percent Auto 0.4 % (0.2-1.2); Eosinophils Absolute Auto 0.2 K/mm3 (0-0.3); Eosinophils Percent Auto 2.1 % (0-4.4); Hematocrit 39.3 % (37.0-47.0); Hemoglobin 13.3 g/dL (12.0-15.0); Immature Granulocyte Absolute 0.04 K/mm3 (0.00-0.031); Immature Granulocyte Percent A 0.5 % (0-0.5); Lymphocytes Absolute Auto 2.62 K/mm3 (0.9-3.2); Lymphocytes Percent Auto 30.6 % (18.3-44.2); Mean Corpuscular HGB Conc 33.8 g/dl (32-36); Mean Corpuscular Hemoglobin 29.2 pg (26-34); Mean Corpuscular Volume 86.2 fl (80-100); Monocytes Absolute Auto 0.5 K/mm3 (0.1-0.6); Monocytes Percent Auto 6.2 % (2.6-8.5); Neutrophils Absolute Auto 5.2 K/mm3 (1.3-6.7); Neutrophils Percent Auto 60.2 % (45.5-73.1); Platelet Count Result 278 k/mm3 (150-375); Red Blood Count 4.56 M/mm3 (4.2-5.4); Red Cell Distribution Width 13.8 % (11.5-14.5); White Blood Count 8.6 K/mm3 (4.5-10.0)
[2021-06-25] MEDS: PANTOPRAZOLE SODIUM IV 40 MG VIAL IV PUSH (03:51)
[2021-06-25] MEDS: KETOROLAC 30 MG/ML VIAL (*BKC) IV PUSH (03:52)
[2021-06-25 04:11] LABS: Add Urine Microscopic? YES; Appearance Urine Clear (Clear); Bacteria Urine Trace /hpf; Bilirubin Urine Negative (Negative); Blood Urine Negative (Negative); Color Urine Yellow (Yellow); Glucose Urine UA Negative (Negative); Ketones Urine Negative (Negative); Leukocyte Esterase Ur 1+ LEU/UL (Negative); Nitrate Urine Negative (Negative); Protein Urine Negative (Negative); Specific Grav Ur 1.018 (1.001-1.035); Squamous Epithelial Cell Urine Moderate /hpf (Few); Urobilinogen Urine Negative mg/dL (<2.0); WBC Urine 21-30 /hpf
[2021-06-25 04:19] LABS: Alanine Aminotransferase 100 U/L (4-35); Albumin Level 4.6 g/dL (3.5-5.1); Alkaline Phosphatase 167 U/L (38-126); Anion Gap 13 mmol/L (8-16); Aspartate Amino Transferase 101 U/L (14-36); Bilirubin,Total 0.7 mg/dL (0.2-1.3); Blood Urea Nitrogen 16 mg/dL (7-17); Calcium 9.3 mg/dL (8.4-10.2); Carbon Dioxide 22 mmol/L (22-30); Chloride 105 mmol/L (98-107); Estimated CRCL calculation 95 ml/min; Estimated Glomerular Filt Rate > 60; Glucose 99 mg/dL (65-110); Lipase 119 U/L (23-300); Potassium 3.8 mmol/L (3.4-5.0); Sodium 140 mmol/L (137-145)
[2021-06-25 05:10] VITALS: BP 118/85; PULSE 66; RESP 18; O2SAT 100
[2021-06-25 06:15] VITALS: BP 114/77; PULSE 88; RESP 16; O2SAT 100
--- NOTE | 2021-06-25 07:05 | PC.NURSE ---
pt to ultrasound via stretcher.
[2021-06-25 08:43] VITALS: BP 124/84; PULSE 65; RESP 18; TEMP 36.8; O2SAT 100
== END 2021-06-25 08:45 | disposition home or self-care (01) ==
PROVIDERS: Emergency Provider General Practice; PCP Nurse Practitioner Family
DX: R10.11 Right upper quadrant pain (principal); R94.5 Abnormal results of liver function studies
CPT/HCPCS: 36415; 76705; 80053; 81001; 81025; 83690; 85025; 87086; 87088; 96374; 96375; 99284; C9113; J1885

== ENCOUNTER 2021-08-03 12:26 | Outpatient (CLI) | payer OTHER, SELFPAY ==
[2021-08-03 13:36] LABS: Alanine Aminotransferase 22 U/L (4-35); Albumin Level 4.6 g/dL (3.5-5.1); Alkaline Phosphatase 80 U/L (38-126); Amylase 70 U/L (30-110); Aspartate Amino Transferase 27 U/L (14-36); Bilirubin,Total 0.6 mg/dL (0.2-1.3); Lipase 74 U/L (23-300)
== END 2021-08-03 12:27 | disposition home or self-care (01) ==
PROVIDERS: PCP Nurse Practitioner Family; Visit Provider Surgery
DX: Z01.818 Encounter for other preprocedural examination (principal); K80.10 Calculus of gallbladder with chronic cholecystitis without obstruction
CPT/HCPCS: 36415; 80076; 82150; 83690

== ENCOUNTER 2021-08-05 00:04 | Day surgery (SDC) | payer OTHER, SELFPAY ==
[2021-07-29 17:22] VITALS: BMI 27.4
--- NOTE | 2021-07-29 17:49 | PC.NURSE ---
Report to the Outpatient Waiting Room, entrance under the green pavilion located off [facility], at 0600 on 08-05-21. OR Time: 0730. - You and your visitor will be asked a series of questions to screen for COVID 19 for your protection. - A mask is required within the hospital. Preoperative COVID Testing Requirements: No COVID Test needed if: (proof is required; if not received patient will have Rapid Test prior to entry) - Patient has received COVID Vaccine at least 14 days prior to procedure date or - Patient has positive COVID test result within last 90 days of surgery date. COVID Test needed if above criteria is not met If not COVID vaccinated a COVID test must be conducted within 72 hours of surgery and patient is asked to isolate self from time of testing until procedure. You will go to the [facility] for your COVID testing. The [facility] is located at the corner of [address] [facility]. You will only be called if COVID results are positive and your surgeon may reschedule your elective surgery date. Patients may have clear liquids (water, carbonated beverages, clear teas, apple juice) until 3 hours prior to surgery with a maximum of 20 ounces. 0430 - No food from midnight until time of surgery - Infants may have breast milk until 4 hours before surgery, formula 6 hours prior to surgery. - Children will be allowed to drink immediately following surgery. If applicable, please bring a bottle or sippy cup to assist with drinking. Juice, water, soda, and popsicles are readily available. For infants on formula, please bring formula the day of surgery. Pacifiers are allowed. Take the following medications with a SIP of water the morning of surgery: None Medications to discontinue per physician: N/A Date to take last dose: N/A Please no make-up, nail vietnamese, hairspray, perfume, deodorant, or body powder the day of surgery. No jewelry (including any body piercings) or valuables the day of surgery, leave them at home. Please take a shower or bath the night before, or the morning of, surgery with an antibacterial soap. Hibiclens - Wear comfortable, loose fitting clothing. Children are encouraged to wear pajamas. - Jewelry must be removed prior to entering the operating room. Rings and piercings that are not removed may be cut off. - The hospital will not accept responsibility for valuables. - Please leave all valuables, including medications, at home the day of surgery. If you are going home after surgery, a licensed road train driver must drive you home. - NO public transportation without another adult. - We recommend that an adult stay with you for 24 hours following discharge. - We also recommend that you do not drive, make important decision, drink alcoholic beverages, or take any drugs that were not prescribed by your health care provider for at least 24 hours after your discharge time. For Pediatric surgeries, we recommend two adults accompany the child home (only one inside the building at this time). One visitor will be allowed to accompany the patient into the hospital. Patients visitor will be instructed to remain with patient at all times or leave the building. We will allow the visitor to come back to the postoperative area when patient is ready. Follow any additional instructions given to you from your surgeon. Telephone instructions given to Cassandra Koenig and asked if any additional questions and then verbalized understanding. Patient advised to call surgeon office or pre surgery nurse liaison [phone] if any additional questions.
[2021-08-05] VITALS (11 sets, daily range): BP systolic 110–140; BP diastolic 67–89; PULSE 61–104; RESP 12–17; TEMP 36.2–36.3; O2SAT 99–100
[2021-08-05] MEDS: ACETAMINOPHEN 500 MG TABLET 1000 MG PO (06:47)
[2021-08-05] MEDS: KETOROLAC 15 MG/ML VIAL (*BKC) IV PUSH (06:47)
[2021-08-05] MEDS: LACTATED RINGERS 1,000 ML 30 ML IV CONT (06:47)
[2021-08-05] MEDS: SCOPOLAMINE 1.5 MG PATCH TRANSDERM (06:49)
--- NOTE | 2021-08-05 07:30 | WPDHPUPDATE1 ---
History and Physical Update Update Date/Time: 08/05/21 07:30 History and Physical has been reviewed, including an updated exam of the patient. There are NO changes in the patient's condition. Risks, benefits, and alternatives have been discussed and questions answered. Patient agrees to proceed with procedure.
[2021-08-05] MEDS: ceFAZolin 2 GM/D5W 50 ML 2 GM/50 ML BAG IVPB (07:33)
--- NOTE | 2021-08-05 08:33 | P.OP_ITS ---
Procedure Note - Detailed Date of Procedure 08/05/21 Pre-op Diagnosis chronic cholecystitis with cholelithiasis Post-op Diagnosis Same Procedure Performed Laproscopic Cholecystectomy Surgeon Wesley Burton MD Photonics Technician Sydnie PRIDE.OR household personal assistant Anesthesia General Indications Recurrent episodes of biliary colic with an ultrasound showing small gallstones. Findings Noninflamed normal appearing gallbladder. Palpable stones within the gallbladder upon removal. Description of Procedure Patient was seen preoperatively in the holding area and risks, benefits and alternatives confirmed. Patient was taken to the operating room and general anesthesia was induced. A time out was then preformed with the surgery team confirming patient and site of surgery. The abdomen was prepped and draped in the usual sterile fashion. Incision was made just below the umbilicus with an 11 blade knife. I placed 2 stay sutures of O- Vicryl on either side of the mid- line fascia beneath the umbilicus and was then able to slide in the Farrell cannula through the fascial defect into the peritoneum. First under low flow and then under high flow the abdomen was insufflated with carbon dioxide never exceeding a pressure of 14. Three 5 mm trocars were then introduced under direct vision. The following trocars were introduced under direct vision: a 5 mm in the epigastrium and two 5 mm trocars along the right costal margin laterally in the subcostal area. There were not any adhesions to the underside of the gallbladder. I then carefully used the L- shaped cautery and the [place] dissector to dissect out the triangle of Calot. I then was able to dissect out both the cystic duct and cystic artery and identify a window of safety. While dissecting this out there was a very small area that was stained slightly bilious. This was in the window of safety I carefully inspected the area not appear to be any type of major duct and 1 clip was applied just superior to the 2 clips applied on the proximal cystic artery. I suspect this may have been a duct of Luschka. The gall bladder was grasped and the cystic duct and artery were dissected free and clipped with an 5 mm endo-clip film editor. The cystic duct and artery were clipped with use of 2 clips on the patient's side 1 on the gallbladder side utilizing a 5 mm endoclip- film editor. The cystic duct was then transected. The cystic artery was also transected at this point. The gall bladder was removed using electrocautery and then removed from the abdomen using an endobag a large 10 mm grasper via the umbilical incision. The trocars were removed visualizing hemostasis and the remaining gas evacuated. The large trocar site at the umbilicus was closed with use of the 2 stay sutures of 0 Vicryl mentioned above and also a figure of 8 O-Vicryl suture. The 2 stay sutures mentioned above on either side of the fascia were also tied together to help approximate this midline fascia. Further local anesthetic was placed into each incision for postop pain control. The skin incisions were closed with subcuticular suture of 4-0 Monocryl. Surgical glue then was applied to all the incisions. Patient tolerated the procedure well was taken to the recovery room in good condition. Implants none Estimated Blood Loss 3 Drains No Packing No Pathology Yes (Gallbladder) Complications No immediate complications Condition Stable Disposition PACU
[2021-08-05] MEDS: ONDANSETRON INJ 4 MG/2 ML VIAL IV PUSH (09:08)
[2021-08-05] MEDS: fentaNYL CITRATE INJ (*CRX) 100 MCG/2 ML VIAL 25 MCG IV PUSH ×2 (09:15→10:25)
--- NOTE | 2021-08-05 09:19 | P.PNAN_ITS ---
Anes - Initial Pre Proc Eval Procedure: Operation Date: 08/05/21 07:30 Proposed Procedures p Laparoscopic Cholecystectomy, Possible Intra Operative Cholangioagram, Possible Open - Wesley Burton MD Date/Time: 08/05/21 09:19 Surgeon: Wesley Burton MD Pre Op Diagnosis: chronic cholecystitis with cholelithiasis Patient Data Age: 30 Gender: F Height: 1.6 m Weight: 68.7 kg Last Vital Signs Temp 36.3 C L 08/05/21 08:39 Pulse 68 08/05/21 09:15 Resp 13 08/05/21 09:15 BP 124/78 08/05/21 09:15 Pulse Ox 100 08/05/21 09:15 Allergies Allergy/AdvReac Type Severity Reaction Status Date / Time latex Allergy Rash Verified 08/05/21 07:23 Home Medications Medication Instructions Recorded Confirmed Type hydrocodone-acetaminophen 1 tablet PO Q6H PRN #14 tablet 08/05/21 Rx Patient hx anesthesia problems: none Family hx anesthesia problems: none Results Review: All pre-operative results and documents have been reviewed as part of the pre-operative evaluation. [facility] Past Medical History Medical History Depression Migraine Surgical History Surgical History No history of previous surgery Family History Family History Father Hypertension Grandparent Hypertension Family history of chronic obstructive pulmonary disease Family history of type 2 diabetes mellitus Mother Family history of heart disease in male family member before age 55 Father Dementia Hypertension Mother Hypertension Acute myocardial infarction Grandparent Acute myocardial infarction Cerebrovascular accident Social History Social History Social History: Patient is , one daughter born 02/2021. She lives with her family in [place]. 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 Gender identity (if verbalized by the patient): Female Sexual Orientation (if Verbalized by the Patient): Straight or Heterosexual Spiritual care concerns: No Agree to blood products: Yes Anes - Eval Final PreProcedure Day of Procedure 08/05/21 09:19 Patient weight: overweight Heart: regular rate and rhythm Lungs: clear to auscultation Airway: Mallampati scale class II Neurological: alert and oriented Last oral intake: >/= 8 hours ASA classification: II Emergent: no Anesthetic plan: proceed Anesthesia type and monitoring: general ETT and standard monitoring Results Review: All pre-operative results and documents have been reviewed as part of the pre-operative evaluation. Informed Consent: Late Entry: The patient's anesthetic plan of GA with ETT and its attendant risks and benefits were discussed with the patient/family/POA preoperatively at 7am. Questions were solicited and answers provided to the satisfaction of the patient/family/POA.
[2021-08-05] MEDS: diphenhydrAMINE HCl INJ 50 MG/ML VIAL 25 MG IV PUSH (09:48)
== END 2021-08-05 11:00 | disposition home or self-care (01) ==
PROVIDERS: PCP Nurse Practitioner Family; Visit Provider Surgery
PROC: 0FT44ZZ Resection of Gallbladder, Percutaneous Endoscopic Approach (ICD-10-PCS; CPT 47562; principal; 2021-08-05 07:30)
DX: K80.10 Calculus of gallbladder with chronic cholecystitis without obstruction (principal); F41.9 Anxiety disorder, unspecified
CPT/HCPCS: 47562; 36415; 80076; 82150; 83690; 88304; A9270; J0690; J1100; J1200; J1885; J2250; J2405; J2704; J2710; J3010; J7120; Q9966